=== PATIENT | female | born 1945 | race Caucasian/White ===

== ENCOUNTER 2017-03-11 09:06 | Emergency (ER) | payer MEDICARE ==
[~2017-03-11] VITALS: Ht 160 cm; Wt 71.0 kg
[2017-03-11] MEDS ORDERED: LISINOPRIL20 MG PO (09:18)
[2017-03-11] MEDS ORDERED: SIMVASTATIN20 MG PO (09:19)
[2017-03-11] MEDS ORDERED: NASONEX50 MCG/ACT NAB (09:19)
[2017-03-11] MEDS ORDERED: MULTI VIT PO (09:20)
[2017-03-11] MEDS ORDERED: SINGULAIR10 MG PO (09:20)
[2017-03-11] MEDS ORDERED: NYSTAT/TRIA1 EX (09:21)
[2017-03-11] MEDS ORDERED: ASPIRIN 8181 MG PO (09:22)
[2017-03-11] MEDS ORDERED: FLUOCINONIDE 0.1% EX (09:22)
[2017-03-11] MEDS ORDERED: KRILL OIL OMEG300 MG PO (09:23)
[2017-03-11 10:04] LABS: HEMATOCRIT 39.9 % (37.0-47.0); HEMOGLOBIN 13.3 g/dl (12.0-16.0); IMMATURE GRANULOCYTES 0.5 % (0.0-1.0); MEAN CELL VOLUME 96.4 fL CALC (80.0-100.0); MEAN CORPUSCULAR HGB 32.1 pG CALC (26.0-32.0); MEAN CORPUSCULAR HGB CONC 33.3 g/L CALC (32.0-36.0); NEUT# 3.55 thou/uL (2.00-7.15); RED BLOOD COUNT 4.14 mill/uL (4.20-5.60); RED CELL DISTRI WIDTH 13.2 % (11.5-15.5)
[2017-03-11 10:14] LABS: ALBUMIN 4.8 g/dL (3.2-5.0); ALKALINE PHOSPHATASE 70 u/l (38-126); ANION GAP 18 (6-22 (CALC)); BILIRUBIN, TOTAL 0.6 mg/dL (0.0-1.4); BUN 23 mg/dL (8-23); BUN/CREATININE RATIO 20 (12-20 (CALC)); CALCIUM 9.9 mg/dL (8.4-10.2); CARBON DIOXIDE 24 mmol/l (22-30); CHLORIDE 104 mmol/l (95-108); CREATININE 1.1 mg/dL (0.5-1.0); GFR 49 ML/MIN (>=60 (CALC)); GFR FOR AFR.AMER. 59 ML/MIN (>=60 (CALC)); GLUCOSE 137 mg/dL (82-115); POTASSIUM 4.2 mmol/l (3.5-5.1); SGOT/AST 39 u/l (9-36); SGPT/ALT 37 u/l (11-66); SODIUM 142 mmol/l (137-146)
[2017-03-11 10:27] LABS: MYOGLOBIN 52 ng/mL (0 - 62)
[2017-03-11 10:45] LABS: URINE BILIRUBIN - DIPSTICK NEGATIVE (NEGATIVE); URINE BLOOD DIPSTICK NEGATIVE (NEGATIVE); URINE CLARITY CLEAR; URINE COLOR YELLOW; URINE GLUCOSE - DIPSTICK NEGATIVE (NEGATIVE); URINE KETONE NEGATIVE (NEGATIVE); URINE LEUK ESTERASE NEGATIVE (NEGATIVE); URINE NITRITE - DIPSTICK NEGATIVE (Negative); URINE PH 5.5 (4.5-8.0); URINE PROTEIN - DIPSTICK NEGATIVE (NEG-TRACE); URINE UROBILINOGEN - DIPSTICK 0.2 E.U./dL (0.2)
[2017-03-11 11:09] VITALS: BP 165/72
== END 2017-03-11 11:15 | disposition home or self-care (01) ==
LOC: ED 09:06
PROVIDERS: Emergency Medicine
DX: R55 Syncope and collapse (principal); I10 Essential (primary) hypertension; E78.00 Pure hypercholesterolemia, unspecified

== ENCOUNTER 2017-11-23 08:36 | Day surgery (SDC) | payer MEDICARE ==
[~2017-11-23] VITALS: Ht 160 cm; Wt 70.8 kg
[~2017-11-23 08:36] MED LIST: ASPIRIN 8181 MG PO; FLUOCINONIDE 0.1% EX; KRILL OIL OMEG300 MG PO; LISINOPRIL20 MG PO; MULTI VIT PO; NASONEX50 MCG/ACT NAB; NYSTAT/TRIA1 EX; SIMVASTATIN20 MG PO; SINGULAIR10 MG PO; XGEVA SC
[2017-11-23] MEDS ORDERED: CALCI23 PO (08:52)
[2017-11-23 12:04] VITALS: BP 136/74
== END 2017-11-23 11:50 | disposition home or self-care (01) ==
LOC: ENDO 08:36
PROVIDERS: ATTEND Surgery
PROC: 0DJD8ZZ Inspection of Lower Intestinal Tract, Via Natural or Artificial Opening Endoscopic (ICD-10-PCS; principal; 2017-11-23)
DX: Z12.11 Encounter for screening for malignant neoplasm of colon (principal); K57.30 Diverticulosis of large intestine without perforation or abscess without bleeding; I10 Essential (primary) hypertension; E78.5 Hyperlipidemia, unspecified; M19.90 Unspecified osteoarthritis, unspecified site
CPT/HCPCS: G0121

== ENCOUNTER 2018-02-08 09:20 | Emergency (ER) | payer MEDICARE ==
[~2018-02-08] VITALS: Ht 160 cm; Wt 70.0 kg
[~2018-02-08 09:20] MED LIST changes: +CALCI23 PO
[2018-02-08 10:59] LABS: HEMATOCRIT 41.7 % (37.0-47.0); HEMOGLOBIN 13.8 g/dl (12.0-16.0); IMMATURE GRANULOCYTES 0.4 % (0.0-1.0); MEAN CELL VOLUME 96.8 fL CALC (80.0-100.0); MEAN CORPUSCULAR HGB CONC 33.1 g/L CALC (32.0-36.0); NEUT# 3.66 thou/uL (2.00-7.15); RED BLOOD COUNT 4.31 mill/uL (4.20-5.60)
[2018-02-08 11:06] LABS: ALBUMIN 4.5 g/dL (3.2-5.0); ALKALINE PHOSPHATASE 82 u/l (38-126); ANION GAP 14 (6-22 (CALC)); BILIRUBIN, TOTAL 0.4 mg/dL (0.0-1.4); BUN 22 mg/dL (8-23); BUN/CREATININE RATIO 22 (12-20 (CALC)); CARBON DIOXIDE 27 mmol/l (22-30); CHLORIDE 103 mmol/l (95-108); GFR 55 ML/MIN (>=60 (CALC)); GFR FOR AFR.AMER. > 60 ML/MIN (>=60 (CALC)); POTASSIUM 4.6 mmol/l (3.5-5.1); SGOT/AST 32 u/l (9-36); SGPT/ALT 38 u/l (11-66); SODIUM 140 mmol/l (137-146); TOTAL PROTEIN 7.6 g/dL (6.3-8.2)
[2018-02-08] MEDS ORDERED: ANTIVERT PO (11:14)
[2018-02-08 11:29] VITALS: BP 156/58
== END 2018-02-08 11:36 | disposition home or self-care (01) ==
LOC: ED 09:20
PROVIDERS: Family Medicine
DX: H81.10 Benign paroxysmal vertigo, unspecified ear (principal); I10 Essential (primary) hypertension; E78.00 Pure hypercholesterolemia, unspecified; D68.2 Hereditary deficiency of other clotting factors

== ENCOUNTER → 2018-09-27 | Outpatient (REF) | payer MEDICARE ==
[~2018-09-27] MED LIST changes: +ANTIVERT PO; +PROLIA60 MG/ML SC
[2018-09-27 08:12] LABS: HEMATOCRIT 40.9 % (37.0-47.0); HEMOGLOBIN 13.3 g/dl (12.0-16.0); IMMATURE GRANULOCYTES 0.2 % (0.0-5.0); MEAN CELL VOLUME 97.4 fL CALC (80.0-100.0); MEAN CORPUSCULAR HGB 31.7 pG CALC (26.0-32.0); MEAN CORPUSCULAR HGB CONC 32.5 g/L CALC (32.0-36.0); NEUT# 2.37 thou/uL (2.00-7.15); RED BLOOD COUNT 4.2 mill/uL (4.20-5.60); RED CELL DISTRI WIDTH 12.8 % (11.5-15.5)
[2018-09-27 08:38] LABS: ALBUMIN 4.5 g/dL (3.2-5.0); BILIRUBIN, TOTAL 0.5 mg/dL (0.0-1.4); CHOLESTEROL HDL RATIO 2.2 (<4.4 (CALC)); CREATININE 1.1 mg/dL (0.5-1.0); POTASSIUM 4.7 mmol/l (3.5-5.1); TOTAL PROTEIN 7.1 g/dL (6.3-8.2)
[2018-09-27 09:04] LABS: TSH, 3RD GENERATION 3.28 uIU/mL (0.47 - 4.68)
== END | disposition home or self-care (01) ==
LOC: LAB 07:28
PROVIDERS: ATTEND Internal Medicine
DX: E78.49 Other hyperlipidemia (principal); N18.3 Chronic kidney disease, stage 3 (moderate)

== ENCOUNTER 2020-03-31 22:20 | Emergency (ER) | payer MEDICARE ==
[~2020-03-31] VITALS: Ht 160 cm; Wt 65.5 kg
[2020-03-31] MEDS ORDERED: AROMASIN25 MG PO (22:46)
[2020-03-31 22:54] LABS: HEMATOCRIT 41.1 % (37.0-47.0); HEMOGLOBIN 13.2 g/dl (12.0-16.0); IMMATURE GRANULOCYTES 0.3 % (0.0-5.0); MEAN CORPUSCULAR HGB 30.8 pG CALC (26.0-32.0); MEAN CORPUSCULAR HGB CONC 32.1 g/dL CAL (32.0-36.0); NEUT# 6.05 thou/uL (2.00-7.15); RED BLOOD COUNT 4.28 mill/uL (4.20-5.60); RED CELL DISTRI WIDTH 12.7 % (11.5-15.5)
[2020-03-31 23:25] LABS: ALBUMIN 4.7 g/dL (3.2-5.0); BILIRUBIN, TOTAL 0.4 mg/dL (0.0-1.4); CREATININE 1.2 mg/dL (0.5-1.0); POTASSIUM 4.4 mmol/l (3.5-5.1); TOTAL PROTEIN 7.5 g/dL (6.3-8.2)
--- NOTE | 2020-04-01 00:40 | NUR ---
INTUBATION CALLED. INTUBATED BY ANESTACIA WITH AN ETT # 7 AT 21 CM OF THE LIPS. ETT VERIFIED BY CO2 DETECTOR, BREATH SOUND AND THEN CHEST X-RAY. PLACED ON VENTILATOR WITH THE FOLLOWING SETTING: AC 15, 500, 50% AND 5 PEEP. WILL CONTINUE TO MONITOR THE PATIENT.
[2020-04-01 01:35] VITALS: BP 172/74
== END 2020-04-01 01:35 | disposition short-term general hospital (02) ==
LOC: ED 22:20 → ED-I 22:40 → ED 22:40 → ED-I 04-01 00:18 → ED 04-01 01:35
PROVIDERS: Emergency Medicine
DX: T78.3XXA Angioneurotic edema, initial encounter (principal); C50.919 Malignant neoplasm of unspecified site of unspecified female breast; I10 Essential (primary) hypertension; D68.2 Hereditary deficiency of other clotting factors; Z79.811 Long term (current) use of aromatase inhibitors; Z11.59 Encounter for screening for other viral diseases

== ENCOUNTER 2022-11-22 06:34 | Day surgery (SDC) | payer MEDICARE ==
[~2022-11-22] VITALS: Ht 160 cm; Wt 64.9 kg
[~2022-11-22 06:34] MED LIST changes: +AROMASIN25 MG PO; +NORVASC PO; +PEPCID PO
[2022-11-22 08:29] VITALS: BP 133/64
== END 2022-11-22 08:45 | disposition home or self-care (01) ==
LOC: ENDO 06:34 → ORM 07:30 → ENDO 08:45
PROVIDERS: ATTEND Internal Medicine Gastroenterology
PROC: 0DBP8ZX Excision of Rectum, Via Natural or Artificial Opening Endoscopic, Diagnostic (ICD-10-PCS; principal; 2022-11-22)
DX: K59.09 Other constipation (principal); K62.1 Rectal polyp; K57.30 Diverticulosis of large intestine without perforation or abscess without bleeding; K64.8 Other hemorrhoids; I12.9 Hypertensive chronic kidney disease with stage 1 through stage 4 chronic kidney disease, or unspecified chronic kidney disease; N18.2 Chronic kidney disease, stage 2 (mild); K21.9 Gastro-esophageal reflux disease without esophagitis; E78.5 Hyperlipidemia, unspecified; Z86.010 Personal history of colon polyps